=== PATIENT | female | born 1945 | race Caucasian/White ===

== ENCOUNTER 2016-11-09 17:47 | Emergency (ER) | payer OTHER ==
[2016-11-09 18:03] VITALS: O2SAT 94
--- NOTE | 2016-11-09 18:40 | EDPHY ---
H & P Stated Complaint: Constipated/bloating/cramping ~1 mo;no urge to defecate Time Seen by Provider: 11/09/16 18:22 HPI/ROS: CHIEF COMPLAINT: Constipation. HISTORY OF PRESENT ILLNESS: The patient is a 71 year old female with history of CLL presenting with intermittent constipation for 6 weeks. The patient is eating and drinking normally, but has some decreased appetite due to nausea. She has intermittently had fever that has reached 100.2. The patient is about to start treatment at the [facility] next Saturday. She tried Citrucel and Colace. After Colace she was able to have a bowel movement, but states it was not solid. She denies vomiting or urinary complaints. She feels like her breathing rate has increased secondary to abdominal distention. She denies chest pain, palpitations, or lightheadedness. REVIEW OF SYSTEMS: Aside from elements discussed in the HPI, a comprehensive 10-point review of systems was reviewed and is negative. PAST MEDICAL HISTORY: CLL, non-Hodgkins, Celiac disease, Kidney stones, Shingles SOCIAL HISTORY: Lives in [place]. VITAL SIGNS: Reviewed by me GENERAL: Well-developed, well-nourished, resting comfortably in no respiratory distress. HEENT: Atraumatic. Eyes: No icterus, no injection. Mouth: moist mucous membranes. No erythema or lesions. Neck: supple with no adenopathy. LUNGS: Clear to auscultation bilaterally, no wheezes, rhonchi or rales. CARDIAC: Regular rate and rhythm, no rubs, murmurs or gallops. ABDOMEN: Diffusely swollen, tympanitic abdomen. Mild diffuse tenderness, worse in the left mid quadrant. No rebound or guarding. BACK: No CVA tenderness. EXTREMITIES: No trauma. No edema. Range of motion is normal throughout. NEURO: Alert and oriented, grossly nonfocal. SKIN: Warm and dry, no rash. PSYCHIATRIC: Normal mentation, no agitation. Portions of this note were transcribed by a medical supply technician. I personally performed a history, physical exam, medical decision making, and confirmed accuracy of information the transcribed note. - Personal History Current Tetanus Diphtheria and Acellular Pertussis (TDAP): Yes Tetanus Vaccine Date: 2013 - Medical/Surgical History Hx Asthma: No Hx Chronic Respiratory Disease: No Hx Diabetes: No Hx Cardiac Disease: No Hx Renal Disease: No Hx Cirrhosis: No Hx Alcoholism: No Hx HIV/AIDS: No Hx Splenectomy or Spleen Trauma: No Other PMH: CLL, lymphoma 2010 diagnosed, on oral chemo now, celiac disease, MRSA 2010 foot, shingles, - Social History Smoking Status: Never smoked Constitutional: Initial Vital Signs Temperature (C) 37.8 C 11/09/16 17:50 Heart Rate 101 H 11/09/16 17:50 Respiratory Rate 18 11/09/16 17:50 Blood Pressure 113/75 11/09/16 17:50 O2 Sat (%) 94 11/09/16 17:50 O2 Delivery Mode Room Air Allergies/Adverse Reactions: gluten [Gluten] Allergy (Mild, Verified 11/09/16 18:03) FLU LIKE SYMPTOMS IN STOMACH SENSITIVE TO ANTIBOTICS Allergy (Intermediate, Uncoded 11/09/16 18:03) EXTREME ABDOMEN BLOATING COOKED ONIONS Allergy (Mild, Uncoded 11/09/16 18:03) FLU LIKE SYMPTOMS IN STOMACH Home Medications: Medication Instructions Recorded LORazepam [Ativan (*)] 0.5 - 1 mg PO HS PRN 02/16/13 Acyclovir [Zovirax 400 mg (*)] 400 mg PO BID 04/16/16 Medical Decision Making - Diagnostics Imaging: X-ray: Abdomen was obtained. I viewed the images myself on the PACS system. My interpretation of the images is: Constipation. The radiologist interpretation is: Constipation, kidney stones. I discussed the x-ray findings with the patient. ED Course/Re-evaluation: I offered CT imaging, patient declined and would only like x-ray at this time. X-ray shows constipation. 8:45 p.m.: I did a rectal exam, there is no stool in the vault. Labs largely unremarkable. WBC increased slightly and atypical lymphocytes present; patient aware that her counts are rising and has plans to go to [facility] in several days for treatment. No evidence of SBO on xray. No vomiting, still passing some gas. Offered CT scanning again to further define abdominal pathology and evaluate for increase lymph node size, obstruction, etc.. Patient again declines and wasnts to try supportive therapy at home. Differential Diagnosis: Diff dx considered constipation, bowel obstruction, ileus, electrolyte abnormality, mechanical obstruction from mass or tumor, gas, bloating. - Data Points Laboratory Results: Laboratory Results 11/09/16 19:00 11/09/16 19:00 Departure - Departure Disposition: Home, Routine, Self-Care Clinical Impression: Constipation, CLL (chronic lymphocytic leukemia) Condition: Good Instructions: Constipation (ED) Additional Instructions: #1. Take Magnesium Citrate as directed to help with constipation. #2. Followup with your doctor as scheduled to have CT done. Referrals: Brandon Best MD [Primary Care Provider] - As per Instructions Report Scribed for: Hui Carrillo Report Scribed by: Pamela Segundo Date of Report: 11/09/16 Time of Report: 18:40
[2016-11-09 19:10] LABS: ADD MORPH? NO; ADD SCAN? YES; FRAGMENT RBC FLAG 0 (0-99); HEMATOCRIT 33.9 % (38.0-47.0); HEMOGLOBIN 11.1 g/dL (12.6-16.3); LEFT SHIFT FLG 10 (0-99); LIPEMIA HEMOLYSIS FLAG 80 (0-99); MEAN CELL HEMOGLOBIN 28.8 pg (27.9-34.1); MEAN CELL HEMOGLOBIN CONCENTR. 32.7 g/dL (32.4-36.7); MEAN CELL VOLUME 87.8 fL (81.5-99.8); MEAN PLATELET VOLUME 10.1 fL (8.7-11.7); PLATELET CLUMPS FLAG 10 (0-99); PLATELET COUNT 213 10^3/uL (150-400); RED BLOOD CELL COUNT 3.86 10^6/uL (4.18-5.33)
[2016-11-09 19:11] LABS: COLOR YELLOW; LEUKOCYTE ESTERASE,URINE TRACE (NEGATIVE); NITRITE,URINE NEGATIVE (NEGATIVE)
[2016-11-09 19:14] LABS: MUCUS TRACE /lpf (NONE-1+); RBC,URINE 15-25 /hpf (0-3)
[2016-11-09 19:19] LABS: ATYPICAL LYMPHOCYTE FLAG 110 (0-99)
[2016-11-09 19:33] LABS: ALANINE AMINOTRANSFERASE 26 IU/L (9-52); ALBUMIN 3.9 g/dL (3.5-5.0); ALKALINE PHOSPHATASE 114 IU/L (38-126); ANION GAP 11 mEq/L (8-16); ASPARTATE AMINOTRANSFERASE 31 IU/L (14-46); BILIRUBIN,TOTAL 0.7 mg/dL (0.1-1.4); BILIRUBIN-CONJUGATED 0.4 mg/dL (0.0-0.5); BILIRUBIN-UNCONJUGATED 0.3 mg/dL (0.0-1.1); CALCIUM 9.3 mg/dL (8.5-10.4); CARBON DIOXIDE 21 mEq/l (22-31); CHLORIDE 105 mEq/L (97-110); CREATININE 0.8 mg/dL (0.6-1.0); GLOMERULAR FILTRATION RATE > 60; GLUCOSE 104 mg/dL (70-100); POTASSIUM 3.9 mEq/L (3.5-5.2); SODIUM 137 mEq/L (134-144); TOTAL PROTEIN 6.3 g/dL (6.3-8.2)
[2016-11-09 19:47] LABS: ADD DIFF? YES; SCAN POSITIVE
[2016-11-09 19:53] LABS: PLATELET ESTIMATE ADEQUATE (ADEQ); POLYCHROMASIA 1+
[2016-11-09 21:11] VITALS: BP 128/78; PULSE 70; RESP 14; TEMP 98.4
== END 2016-11-09 21:11 | disposition home or self-care (01) ==
DX: K59.00 Constipation, unspecified (principal); C91.10 Chronic lymphocytic leukemia of B-cell type not having achieved remission

== ENCOUNTER 2016-11-18 18:13 | Emergency (ER) | payer OTHER ==
[2016-11-18 18:22] VITALS: RESP 16
--- NOTE | 2016-11-18 18:26 | EDPHY ---
HPI/HX/ROS/PE/MDM Narrative: CHIEF COMPLAINT: Ativan Overdose. HISTORY OF PRESENT ILLNESS: The patient is a 71-year-old female with a history of CLL who presents after taking approximately 20mg Ativan around 1000 this morning. She reports that she took these in a suicide attempt. She recently traveled to [facility] to initiate treatment for her CLL, which is set to start in 2 weeks. Her daughter refused to come with her, which caused her to wake up depressed this morning. She then put "more or less" 20 1mg Ativan tablets into her mouth. She has been sleeping on and off all day. She denies taking other medications or any drugs today. No HI. She does have a history of depression but has never attempted suicide. No fever, chills, chest pain, shortness of breath, palpitations, vomiting, diarrhea, urinary complaints, headache, lightheadedness. REVIEW OF SYSTEMS: Aside from elements discussed in the HPI, a comprehensive 10-point review of systems was reviewed and is negative. PAST MEDICAL HISTORY: CLL, Celiac disease, shingles, depression. SOCIAL HISTORY: Mother. VITAL SIGNS: Reviewed by me GENERAL: Sleepy but arousable. Well-developed, well-nourished, resting comfortably in no respiratory distress. HEENT: Atraumatic. Eyes: No icterus, no injection. Mouth: moist mucous membranes. No erythema or lesions. Neck: supple with no adenopathy. LUNGS: Clear to auscultation bilaterally, no wheezes, rhonchi or rales. CARDIAC: Regular rate and rhythm, no rubs, murmurs or gallops. ABDOMEN: Soft, nontender, nondistended, bowel sounds normal. Palpable lymph nodes in bilateral groin. Palpable spleen. Palpable mass in right lower abdomen. BACK: No CVA tenderness. EXTREMITIES: No trauma. No edema. Range of motion is normal throughout. NEURO: Alert and oriented, grossly nonfocal. SKIN: Warm and dry, no rash. PSYCHIATRIC: Normal mentation, no agitation. Portions of this note were transcribed by a medical coding specialist. I personally performed a history, physical exam, medical decision making, and confirmed accuracy of information the transcribed note. (Hui Carrillo) ED Course: Patient placed on detainer by myself. I spoke with the [facility], . Patient is no longer in danger of respiratory depression. Labs and urine obtained. Patient was clinically cleared. Psych was asked to evaluation at 10:00 p.m. Patient's care assumed at 10:[address] Cordelia Mena. Patient is aware that she will need to remain in the emergency department so she is evaluated by mental health. She tells me she has a therapist named Skye who she has been trying to reach and may be able to see her tomorrow in the afternoon. (Hui Carrillo) 6:45 a.m.- The patient has remained stable throughout my shift. She is still awaiting mental health evaluation which occurred this morning. The case will be signed out at change of shift to the oncoming provider Dr. Romo. (Cordelia Mena) The patient was turned over to me by Dr. Cordelia Mena at shift change. The patient was seen in consultation by the psychiatric evaluation services. The patient's case was discussed with Dr. Bob Blanco. The patient now contracts for safety and denies suicidal ideation. The case was discussed with her regular therapist who knows her well. The patient would like to be discharged from the emergency department. Her therapist is amenable to this plan and disposition. Dr. Bob Blanco has vacated the psychiatric hold. The patient will be discharged from the emergency department with customary return precautions and a follow-up plan to see her therapist later today. (Kofi Romo) MDM: Differential diagnosis of the patient's presenting complaint was considered including but not limited to functional and major depression, situational depression, hypothyroidism, medication side effect, drugs and alcohol abuse. ( Hui Carrillo) I assumed the care of the patient at 700AM pending psychiatric placement. (Kofi Romo) - Data Points Laboratory Results: Laboratory Results 11/18/16 20:02 11/18/16 20:02 11/18/16 20:02 Smear Review By Guanako WALTER MD General Time Seen by Provider: 11/18/16 18:25 Initial Vital Signs: Initial Vital Signs Temperature (C) 36.7 C 11/18/16 18:18 Heart Rate 98 11/18/16 18:18 Respiratory Rate 16 11/18/16 18:18 Blood Pressure 104/64 11/18/16 18:18 O2 Sat (%) 93 11/18/16 18:18 O2 Delivery Mode Room Air Allergies/Adverse Reactions: gluten [Gluten] Allergy (Mild, Verified 11/18/16 18:17) FLU LIKE SYMPTOMS IN STOMACH SENSITIVE TO ANTIBOTICS Allergy (Intermediate, Uncoded 11/09/16 18:03) EXTREME ABDOMEN BLOATING COOKED ONIONS Allergy (Mild, Uncoded 11/09/16 18:03) FLU LIKE SYMPTOMS IN STOMACH Home Medications: Medication Instructions Recorded LORazepam [Ativan (*)] 0.5 - 1 mg PO HS PRN 02/16/13 Acyclovir [Zovirax 400 mg (*)] 400 mg PO BID 04/16/16 Allopurinol 11/18/16 Departure - Departure Disposition: Home, Routine, Self-Care Clinical Impression: Depression Benzodiazepine overdose Qualifiers: Encounter type: initial encounter Injury intent: intentional self-harm Qualified Code(s): T42.4X2A - Poisoning by benzodiazepines, intentional self- harm, initial encounter Condition: Good Instructions: Depression (ED) Additional Instructions: 1. Please follow-up with the mental health resources provided in the ED today. 2. [facility] does operate a 11/03 psychiatric crisis unit located at [address] [place] [address]. The telephone number for the 24 hour crisis center is [phone]. 3. Please return to the ED if you are feeling suicidal, having thoughts of harming yourself/others or should you feel unsafe or have worsening symptoms. 4. Please follow-up with your therapist as discussed today. Referrals: Brandon Best MD [Primary Care Provider] - As per Instructions Report Scribed for: Hui Carrillo Report Scribed by: Stan Gallegos Date of Report: 11/18/16 Time of Report: 19:11
[2016-11-18 20:17] LABS: % IMMATURE GRANULYOCYTES 1.1 % (0.0-1.1); ABSOLUTE IMMATURE GRANULOCYTES 0.22 10^3/uL (0.00-0.10); ADD DIFF? NO; ADD MORPH? NO; ADD SCAN? YES; FRAGMENT RBC FLAG 0 (0-99); HEMATOCRIT 35.3 % (38.0-47.0); HEMOGLOBIN 11.4 g/dL (12.6-16.3); LEFT SHIFT FLG 10 (0-99); LIPEMIA HEMOLYSIS FLAG 80 (0-99); MEAN CELL HEMOGLOBIN 29.4 pg (27.9-34.1); MEAN CELL HEMOGLOBIN CONCENTR. 32.3 g/dL (32.4-36.7); MEAN PLATELET VOLUME 9.4 fL (8.7-11.7); PLATELET CLUMPS FLAG 0 (0-99); PLATELET COUNT 250 10^3/uL (150-400); RED BLOOD CELL COUNT 3.88 10^6/uL (4.18-5.33); RED CELL DISTRIBUTION WIDTH 15.4 % (11.5-15.2)
[2016-11-18 20:18] LABS: ATYPICAL LYMPHOCYTE FLAG 110 (0-99)
[2016-11-18 20:29] LABS: ANION GAP 11 mEq/L (8-16); CALCIUM 9.8 mg/dL (8.5-10.4); CARBON DIOXIDE 22 mEq/l (22-31); CHLORIDE 110 mEq/L (97-110); GLOMERULAR FILTRATION RATE 55; GLUCOSE 82 mg/dL (70-100); POTASSIUM 4.5 mEq/L (3.5-5.2); SALICYLATE < 1.0 mg/dL (2.0-20.0); SODIUM 143 mEq/L (134-144)
[2016-11-18 20:35] LABS: ETHANOL SERUM < 10 mg/dL (0-10)
[2016-11-18 20:54] LABS: SCAN POSITIVE
[2016-11-18 21:00] LABS: PLATELET ESTIMATE ADEQUATE (ADEQ); POLYCHROMASIA 1+
[2016-11-19 07:27] VITALS: TEMP 98.1
[2016-11-19 12:32] VITALS: BP 110/71; PULSE 100; O2SAT 92
== END 2016-11-19 12:31 | disposition home or self-care (01) ==
DX: T42.4X2A Poisoning by benzodiazepines, intentional self-harm, initial encounter (principal); F32.9 Major depressive disorder, single episode, unspecified
CPT/HCPCS: 80305; G0480

== ENCOUNTER 2017-02-23 18:39 | Emergency (ER) | payer OTHER ==
--- NOTE | 2017-02-23 19:10 | EDPHY ---
H & P Stated Complaint: ?cellulitis l lower leg Time Seen by Provider: 02/23/17 18:52 HPI/ROS: CHIEF COMPLAINT: Cellulitis HISTORY OF PRESENT ILLNESS: The patient is a 71-year-old female with a history of CLL the who comes to the emergency department complaining of erythema in her left lower leg. She states that it is similar to previous episodes of cellulitis. She is followed by infectious disease. She has been successful in the past with oral therapy. She spoke with Dr. Vidhya Vernon today who recommended she come to the ER. She has not had a fever. She also states that there was check her for DVT but she has never had one. REVIEW OF SYSTEMS: Constitutional: denies: chills, fever, recent illness, recent injury EENTM: denies: blurred vision, double vision, nose congestion Respiratory: denies: cough, shortness of breath Cardiac: denies: chest pain, irregular heart rate, lightheadedness, palpitations Gastrointestinal/Abdominal: denies: abdominal pain, diarrhea, nausea, vomiting, blood streaked stools Genitourinary: denies: dysuria, frequency, hematuria, pain Musculoskeletal: denies: joint pain, muscle pain Skin: See HPI Neurological: denies: headache, numbness, paresthesia, tingling, dizziness, weakness Hematologic/Lymphatic: denies: blood clots, easy bleeding, easy bruising Immunologic/allergic: denies: HIV/AIDS, transplant EXAM: GENERAL: Well-appearing, well-nourished and in no acute distress. HEAD: Atraumatic, normocephalic. EYES: Pupils equal round and reactive to light, extraocular movements intact, sclera anicteric, conjunctiva are normal. ENT: TMs normal, nares patent, oropharynx clear without exudates. Moist mucous membranes. NECK: Normal range of motion, supple without lymphadenopathy or JVD. LUNGS: Breath sounds clear to auscultation bilaterally and equal. No wheezes rales or rhonchi. HEART: Regular rate and rhythm without murmurs, rubs or gallops. ABDOMEN: Soft, nontender, normoactive bowel sounds. No guarding, no rebound. No masses appreciated. BACK: No CVA tenderness, no spinal tenderness, step-offs or deformities EXTREMITIES: Normal range of motion, no pitting or edema. No clubbing or cyanosis. NEUROLOGICAL: Cranial nerves II through XII grossly intact. Normal speech, normal gait. 5/5 strength, normal movement in all extremities, normal sensation PSYCH: Normal mood, normal affect. SKIN: Left lower extremity with posterior erythema and warmth up to the level of the calf down to the Achilles tendon. Is no abscess, no purulence. Source: Patient Exam Limitations: No limitations - Personal History Current Tetanus/Diphtheria Vaccine: Yes Tetanus Vaccine Date: 2013 - Medical/Surgical History Hx Asthma: No Hx Chronic Respiratory Disease: No Hx Diabetes: No Hx Cardiac Disease: No Hx Renal Disease: No Hx Cirrhosis: No Hx Alcoholism: No Hx HIV/AIDS: No Hx Splenectomy or Spleen Trauma: No Other PMH: CLL, lymphoma 2009 diagnosed, on oral chemo now, celiac disease, MRSA 2010 foot, shingles, - Family History Significant Family History: No pertinent family hx - Social History Smoking Status: Never smoked Alcohol Use: Sober Drug Use: None Constitutional: Initial Vital Signs Temperature (C) 36.9 C 02/23/17 18:43 Heart Rate 94 02/23/17 18:43 Respiratory Rate 16 02/23/17 18:43 Blood Pressure 115/79 02/23/17 18:43 O2 Sat (%) 96 02/23/17 18:43 O2 Delivery Mode Room Air Allergies/Adverse Reactions: gluten [Gluten] Allergy (Mild, Verified 02/23/17 18:42) FLU LIKE SYMPTOMS IN STOMACH SENSITIVE TO ANTIBOTICS Allergy (Intermediate, Uncoded 11/09/16 18:03) EXTREME ABDOMEN BLOATING COOKED ONIONS Allergy (Mild, Uncoded 11/09/16 18:03) FLU LIKE SYMPTOMS IN STOMACH Home Medications: Medication Instructions Recorded LORazepam [Ativan (*)] 0.5 - 1 mg PO HS PRN 02/16/13 Acyclovir [Zovirax 400 mg (*)] 400 mg PO BID 04/16/16 Allopurinol 11/18/16 Acalabrutinib 02/23/17 Cephalexin [Keflex] 500 mg PO Q6H #28 cap 02/23/17 Doxycycline Hyclate [Vibramycin] 100 mg PO BID #30 cap 02/23/17 Medical Decision Making - Diagnostics Imaging Results: Imaging Impressions Extremity Venous Study 02/23/17 19:11 Impression: No deep venous thrombosis left leg. Results called and discussed with Dr. Tonio Nevarez at 02/23/2017 20:27. Imaging: Discussed imaging studies w/ aircraft servicer Radiologist ED Course/Re-evaluation: 8:10 p.m. I discussed the case with Dr. Vidhya Vernon from Infectious Disease. We reviewed the previous admission and culture results. She recommends Keflex and doxy at home with a initial dose of Rocephin here in the emergency department. Differential Diagnosis: Partial list of the Differential diagnosis considered include but were not limited to; cellulitis, abscess and although unlikely based on the history and physical exam, I also considered sepsis. I discussed these differential diagnoses and the plan with the patient as well as the usual and expected course. The patient understands that the diagnosis is provisional and that in medicine we are not always correct and that further workup is often warranted. Usual and customary warnings were given. All of the patient's questions were answered. The patient was instructed to return to the emergency department should the symptoms at all worsen or return, otherwise to followup with the physician as we discussed. - Data Points Laboratory Results: Laboratory Results 02/23/17 19:18 02/23/17 19:18 02/23/17 02/23/17 19:18 19:18 WBC 11.27 10^3/uL H 10^3/uL (3.80-9.50) RBC 3.33 10^6/uL L 10^6/uL (4.18-5.33) Hgb 9.6 g/dL L g/dL (12.6-16.3) Hct 30.6 % L % (38.0-47.0) MCV 91.9 fL fL (81.5-99.8) MCH 28.8 pg pg (27.9-34.1) MCHC 31.4 g/dL L g/dL (32.4-36.7) RDW 12.9 % % (11.5-15.2) Plt Count 194 10^3/uL 10^3/uL (150-400) MPV 10.5 fL fL (8.7-11.7) Neut % (Auto) 42.3 % % (39.3-74.2) Lymph % (Auto) 45.2 % H % (15.0-45.0) Ida % (Auto) 4.4 % L % (4.5-13.0) Eos % (Auto) 7.5 % % (0.6-7.6) Baso % (Auto) 0.4 % % (0.3-1.7) Nucleat RBC Rel Count 0.0 % % (0.0-0.2) Absolute Neuts (auto) 4.77 10^3/uL 10^3/uL (1.70-6.50) Absolute Lymphs (auto) 5.09 10^3/uL H 10^3/uL (1.00-3.00) Absolute Monos (auto) 0.50 10^3/uL 10^3/uL (0.30-0.80) Absolute Eos (auto) 0.85 10^3/uL H 10^3/uL (0.03-0.40) Absolute Basos (auto) 0.04 10^3/uL 10^3/uL (0.02-0.10) Absolute Nucleated RBC 0.00 10^3/uL 10^3/uL (0-0.01) Immature Gran % 0.2 % % (0.0-1.1) Immature Gran # 0.02 10^3/uL 10^3/uL (0.00-0.10) Sodium 142 mEq/L mEq/L (134-144) Potassium 4.3 mEq/L mEq/L (3.5-5.2) Chloride 111 mEq/L H mEq/L (97-110) Carbon Dioxide 20 mEq/l L mEq/l (22-31) Anion Gap 11 mEq/L mEq/L (8-16) BUN 28 mg/dL H mg/dL (7-23) Creatinine 0.8 mg/dL mg/dL (0.6-1.0) Estimated GFR > 60 Glucose 132 mg/dL H mg/dL (70-100) Calcium 9.5 mg/dL mg/dL (8.5-10.4) Medications Given: Discontinued Medications Ceftriaxone Sodium/Dextrose (Rocephin 1 Gm (Premix)) 50 mls @ 100 mls/hr IV EDNOW ONE PRN Reason: Protocol Stop: 02/23/17 20:37 Last Admin: 02/23/17 20:00 Dose: 50 mls Departure - Departure Disposition: Home, Routine, Self-Care Clinical Impression: Cellulitis Qualifiers: Site of cellulitis: extremity Site of cellulitis of extremity: lower extremity Laterality: left Qualified Code(s): L03.116 - Cellulitis of left lower limb Condition: Fair Instructions: Cellulitis (ED) Additional Instructions: Dr. Vernon would like to follow up with you on Saturday. If you have trouble before then call her Referrals: Brandon Best MD [Primary Care Provider] - As per Instructions Vidhya Vernon MD [Medical Doctor] - 1-2 days without fail Prescriptions: Cephalexin [Keflex] 500 mg PO Q6H #28 cap Doxycycline Hyclate [Vibramycin] 100 mg PO BID #30 cap
[2017-02-23 19:28] LABS: % IMMATURE GRANULYOCYTES 0.2 % (0.0-1.1); ABSOLUTE IMMATURE GRANULOCYTES 0.02 10^3/uL (0.00-0.10); ADD DIFF? NO; ADD MORPH? NO; ADD SCAN? NO; ATYPICAL LYMPHOCYTE FLAG 0 (0-99); FRAGMENT RBC FLAG 0 (0-99); HEMATOCRIT 30.6 % (38.0-47.0); HEMOGLOBIN 9.6 g/dL (12.6-16.3); LEFT SHIFT FLG 0 (0-99); LIPEMIA HEMOLYSIS FLAG 80 (0-99); MEAN CELL HEMOGLOBIN 28.8 pg (27.9-34.1); MEAN CELL HEMOGLOBIN CONCENTR. 31.4 g/dL (32.4-36.7); MEAN CELL VOLUME 91.9 fL (81.5-99.8); MEAN PLATELET VOLUME 10.5 fL (8.7-11.7); PLATELET CLUMPS FLAG 0 (0-99); PLATELET COUNT 194 10^3/uL (150-400); RED BLOOD CELL COUNT 3.33 10^6/uL (4.18-5.33); RED CELL DISTRIBUTION WIDTH 12.9 % (11.5-15.2)
[2017-02-23 19:36] LABS: ANION GAP 11 mEq/L (8-16); CALCIUM 9.5 mg/dL (8.5-10.4); CARBON DIOXIDE 20 mEq/l (22-31); CHLORIDE 111 mEq/L (97-110); CREATININE 0.8 mg/dL (0.6-1.0); GLOMERULAR FILTRATION RATE > 60; GLUCOSE 132 mg/dL (70-100); POTASSIUM 4.3 mEq/L (3.5-5.2); SODIUM 142 mEq/L (134-144)
[2017-02-23] MEDS ORDERED: CEPHALEXIN 250MG/5ML PREPACK BTL TAKEHOME ONE (21:01)
[2017-02-23] MEDS ORDERED: DOXYCYCLINE 100 MG PREPACK#2 BTL TAKEHOME ONE (21:01)
[2017-02-23] MEDS ORDERED: CEPHALEXIN 500MG PREPACK#4 BTL TAKEHOME ONE (21:01)
[2017-02-23 21:30] VITALS: BP 130/74; PULSE 70; RESP 14; TEMP 97.9; O2SAT 94
== END 2017-02-23 21:29 | disposition home or self-care (01) ==
DX: L03.116 Cellulitis of left lower limb (principal); Z85.72 Personal history of non-Hodgkin lymphomas
CPT/HCPCS: 93971; 96365; 99285; J0696

== ENCOUNTER → 2017-08-01 | Outpatient (CLI) | payer OTHER ==
[~2017-08-01] MED LIST: GADOBUTROL 10 ML VIAL IVP ONE
== END ==
LOC: FIMAGING 17:23
PROVIDERS: ATTEND Obstetrics & Gynecology
DX: K86.2 Cyst of pancreas (principal); K86.89 Other specified diseases of pancreas; N20.0 Calculus of kidney; D47.9 Neoplasm of uncertain behavior of lymphoid, hematopoietic and related tissue, unspecified
CPT/HCPCS: 74183; A9585

== ENCOUNTER 2017-12-08 11:20 | Emergency (ER) | payer OTHER ==
[2017-12-08] MEDS ORDERED: methylPREDNISolone SOD SUCC 125 MG/2 ML VIAL IVP ONE (11:35)
[2017-12-08] MEDS ORDERED: NS 500 ML IV ONE (11:35)
[2017-12-08] MEDS ORDERED: RANITIDINE 50 MG/2 ML VIAL IVP ONE (11:35)
[2017-12-08] MEDS ORDERED: LORazepam 2 MG/ML INJ IVP ONE (11:36)
--- NOTE | 2017-12-08 11:39 | EDPHY ---
H & P Stated Complaint: States trouble swallowing; ? rxn to whey protein Time Seen by Provider: 12/08/17 11:37 HPI/ROS: HPI: This is a 72-year-old female who presents with Chief Complaint: States trouble swallowing; ? rxn to whey protein Location: throat Quality: Trouble swallowing Duration: 30 min prior to arrival Signs and Symptoms: no wheezing, no rash, no facial swelling, no lip swelling, no tongue swelling, no fever, no nausea, no vomiting, no diarrhea, no urinary symptoms, no chest pain, no shortness of breath, no wheezing, no cough, no sore throat, no neck stiffness, no joint pain, + swollen glands, no ear pain, + dysphagia, no drooling Timing:acute Severity: 02/25 Context: Patient presents with complaints of trouble swallowing that started approximately 30 min prior to arrival. She reports around 9:00 a.m. She drank a smoothie that contained whey protein. She was at the [employer] salon with her friend who is currently at bedside when she started to experience approximately 2 hr after ingestion of the smoothie scratchiness of her throat and difficulty swallowing. She reports that she is able to swallow her saliva but it feels thick. She also reports swollen bilateral cervical anterior glands. She has no prior history of anaphylaxis/allergic reaction. Her palms both feel itchy. No rash. Modifying Factors: No tedq-lis-cepwqir medications tried Comment: ROS: see HPI Constitutional: no fever, no chills, no weight loss Eyes: No blurred vision Respiratory: No shortness of breath, no cough Cardiovascular: No chest pain, no palpitations Gastrointestinal: No nausea, no vomiting, no diarrhea, no hematemesis, no blood in stool Genitourinary: No dysuria, no blood in urine Extremities: No myalgias, no edema Neurologic: No weakness, no numbness Skin: No rashes, no petechiae Hematologic: No bruising, no bleeding MEDICAL/SURGICAL/SOCIAL HISTORY: Medical history: CLL, lymphoma 2010 diagnosed, on oral chemo now, celiac disease, MRSA 2011 foot, shingles Surgical history: Denies Social history: Retired. Family history noncontributory. CONSTITUTIONAL: Moderately anxious, chronically ill-appearing elderly white female, friend at bedside, awake and alert, no obvious distress HEENT: Atraumatic and normocephalic, PERRL, EOMI. Nares patent; no rhinorrhea; no nasal mucosal edema. Tympanic membranes clear. Oropharynx clear, no postpharyngeal edema; uvula midline; no exudate and moist pink mucosa. Airway patent. No lymphadenopathy. No meningismus. Cardiovascular: Normal S1/S2, tachycardia, regular rhythm, without murmur rub or gallop. PULMONARY/CHEST: Symmetrical and nontender. No upper airway sound transmission. Clear to auscultation bilaterally. Good air movement. No accessory muscle usage. ABDOMEN: Soft, nondistended, nontender, no rebound, no guarding, no peritoneal signs, no masses or organomegaly. No CVAT. EXTREMITIES: 2/2 pulses, strength 5/5, no deformities, no clubbing, no cyanosis or edema. NEUROLOGICAL: no focal neuro deficits. GCS 15. Speech is clear. SKIN: Warm and dry, no erythema. no rash. Good capillary refill. Source: Patient, Family Exam Limitations: No limitations - Personal History Current Tetanus Diphtheria and Acellular Pertussis (TDAP): Yes Tetanus Vaccine Date: 2013 - Medical/Surgical History Hx Asthma: No Hx Chronic Respiratory Disease: No Hx Diabetes: No Hx Cardiac Disease: No Hx Renal Disease: No Hx Cirrhosis: No Hx Alcoholism: No Hx HIV/AIDS: No Hx Splenectomy or Spleen Trauma: No Other PMH: CLL, lymphoma 2009 diagnosed, on oral chemo now, celiac disease, MRSA 2010 foot, shingles, - Social History Smoking Status: Never smoked Constitutional: Initial Vital Signs Temperature (C) 36.5 C 12/08/17 11:23 Heart Rate 106 H 12/08/17 11:23 Respiratory Rate 18 12/08/17 11:23 Blood Pressure 86/51 L 12/08/17 11:23 O2 Sat (%) 92 12/08/17 11:23 O2 Delivery Mode Room Air O2 (L/minute) 2 Allergies/Adverse Reactions: gluten [Gluten] Allergy (Mild, Verified 12/08/17 11:22) FLU LIKE SYMPTOMS IN STOMACH SENSITIVE TO ANTIBOTICS Allergy (Intermediate, Uncoded 11/09/16 18:03) EXTREME ABDOMEN BLOATING COOKED ONIONS Allergy (Mild, Uncoded 11/09/16 18:03) FLU LIKE SYMPTOMS IN STOMACH Home Medications: Medication Instructions Recorded LORazepam [Ativan (*)] 0.5 - 1 mg PO HS PRN 07/01/13 Acyclovir [Zovirax 400 mg (*)] 400 mg PO BID 04/16/16 Allopurinol 11/18/16 Acalabrutinib 02/23/17 Cephalexin [Keflex] 500 mg PO Q6H #28 cap 02/23/17 Doxycycline Hyclate [Vibramycin] 100 mg PO BID #30 cap 02/23/17 EPINEPHrine [Epipen 0.3 MG] 0.3 mg IM ONCE #2 syr 12/08/17 Medical Decision Making - Diagnostics Imaging Results: Imaging Impressions Soft Tissue Neck X-Ray 12/08/17 14:15 Impression: Mild epiglottic edema is possible, with no airway obstruction noted. ED Course/Re-evaluation: Vital signs reviewed and show mild tachycardia with a low blood pressure. No hypoxia noted. No signs of airway compromise/respiratory distress/angioedema/anaphylaxis 1145: Placed on monitor and given IV 500 cc normal saline, IV Ativan 1 mg, IV Zantac, IV Solu-Medrol, IV Benadryl monitored for 4 hours with complete resolution of symptoms After 4 hr in the emergency room, patient now informs me that she had an EGD approximately 5 weeks ago by Gastroenterology that was unremarkable for her chronic dysphagia. at bedside is now requesting a neck xray. Patient is swallowing fluids without difficulty. She reports that she was supposed to picker operator her prescription from the gastroenterology office before they went out of town but she never did. She does not remember the name of her tandem mill sticker. 1454: Soft tissue x-ray neck Mild epiglottic edema is possible, with no airway obstruction noted. 1515: Reassessed patient. Eating a cupcake without any difficulty and drinking water. This patient was seen under the supervision of my secondary supervising physician. I evaluated care for this patient independently. Discussed this patient with Dr. Mackay who did not see the patient. Differential Diagnosis: Differential diagnosis includes but is not limited to anaphylaxis, angioedema, allergic reaction, mast cell disease. - Data Points Medications Given: Discontinued Medications Diphenhydramine HCl (Benadryl Injection) 25 mg IVP EDNOW ONE Stop: 12/08/17 11:36 Last Admin: 12/08/17 11:42 Dose: 25 mg Sodium Chloride (Ns) 500 mls @ 0 mls/hr IV ONCE ONE; Wide Open PRN Reason: Protocol Stop: 12/08/17 11:36 Last Admin: 12/08/17 11:41 Dose: 500 mls Lorazepam (Ativan Injection) 1 mg IVP EDNOW ONE Stop: 12/08/17 11:37 Last Admin: 12/08/17 11:42 Dose: 1 mg Methylprednisolone Sodium Succinate (Solu-Medrol) 125 mg IVP EDNOW ONE Stop: 12/08/17 11:36 Last Admin: 12/08/17 11:42 Dose: 125 mg Ranitidine HCl (Zantac) 50 mg IVP EDNOW ONE Stop: 12/08/17 11:36 Last Admin: 12/08/17 11:42 Dose: 50 mg Departure - Departure Disposition: Home, Routine, Self-Care Clinical Impression: Allergy to wheat Dysphagia Qualifiers: Dysphagia type: unspecified Qualified Code(s): R13.10 - Dysphagia, unspecified Condition: Good Instructions: Food Allergy (ED), Dysphagia (ED) Additional Instructions: Please avoid whey protein in the future. Acetone from nail scottish remover can also cause throat irritation and should be avoided. Take Benadryl 25-50 mg every 4 hours as needed for itching, allergic reaction. Use Epi Pen as needed for anaphylaxis. Allergic Reaction: Return to the Emergency Department for lip, tongue, throat, or face swelling, or any trouble breathing or swallowing. Eat a bland / soft diet until cleared by Gastroenterology. Referrals: Brandon Best MD [Primary Care Provider] - As per Instructions [facility] [Provider Group] - As per Instructions Prescriptions: EPINEPHrine [Epipen 0.3 MG] 0.3 mg IM ONCE #2 syr
[2017-12-08 15:10] VITALS: BP 102/65
== END 2017-12-08 15:10 | disposition home or self-care (01) ==
DX: R13.10 Dysphagia, unspecified (principal); E86.9 Volume depletion, unspecified; T78.1XXA Other adverse food reactions, not elsewhere classified, initial encounter
CPT/HCPCS: 70360; 96361; 96374; 96375; 99284; J1200; J2060; J2780; J2930

== ENCOUNTER 2017-12-09 15:35 | Inpatient (IN) | payer OTHER ==
[2017-12-09] MEDS ORDERED: ONDANSETRON 4 MG/2 ML VIAL IVP PRN (16:13)
[2017-12-09] MEDS ORDERED: ONDANSETRON DISINTEGRATING 4 MG TAB PO PRN (16:13)
[2017-12-09] MEDS: NS 1,000 ML IV SCH (17:11)
[2017-12-09] MEDS ORDERED: FUROSEMIDE 40 MG/4 ML VIAL IVP ONE ×2 (17:18→20:30)
--- NOTE | 2017-12-09 17:55 | GHP ---
[f rep st] HISTORY AND PHYSICAL DATE OF ADMISSION: 12/09/2017 CHIEF COMPLAINT: Hypercalcemia. HPI: The patient is a 72-year-old with a history of non-Hodgkin lymphoma. She has had worsening symptoms, and a recent CT scan showed increased tumor bulk. She was started on a new medication which has a risk of tumor lysis. She has been followed closely by Dr. Arteaga who noted elevated calcium levels, mildly elevated uric acid levels. She was treated with Zometa on the with a calcium at the height of 12.5. She has also been receiving IV fluids in the outpatient setting. Despite this, her calcium remains elevated at 11.9. She is continuing to have significant lower extremity edema, so she is being admitted for ongoing IV fluids and IV diuresis. Her main complaint now is just the edema. She was hospitalized at [facility] where she is followed by a CLL specialist. They gave her lots of fluids since she had a complication of C difficile colitis and noted the increased lower extremity swelling during that hospitalization. It has not significantly improved since then. She also complains of some mild brain fog and fatigue which has slightly improved since her Zometa a few days ago. She also has had decreased urination recently. No diarrhea currently. No chest pain, shortness of breath. No headache. No other significant symptoms except as noted above. REVIEW OF SYSTEMS: A 10-point review of systems done with the pertinent positives present in HPI. PAST MEDICAL HISTORY: 1. Stage IV non-Hodgkin lymphoma. 2. Eosinophilic esophagitis. 3. Osteoarthritis. 4. History of recent C difficile colitis. No current diarrhea. FAMILY HISTORY: Father from cancer. Mother of old age. SOCIAL HISTORY: She does not smoke and does not drink. CURRENT MEDICATIONS: Please see med reconciliation form. ALLERGIES: Include gluten, cooked onions, and a sensitivity to antibiotics which are unnamed. PHYSICAL EXAM: VITAL SIGNS: She is afebrile. Heart rate is 102, blood pressure 96/60, O2 saturation is 95% with activity, 96% at rest. Weight is 120 kg. GENERAL: She is a 72-year-old woman. She is in no distress. She is alert and oriented. HEENT: Pupils are equal. Extraocular movements intact. No significant periorbital edema. Mucous membranes moist. Oropharynx clear. NECK: Supple. No adenopathy. HEART: Regular with a systolic murmur. LUNGS: Clear bilaterally without rales. ABDOMEN: Soft. No obvious masses. Positive bowel sounds. EXTREMITIES: She has 4+ pitting edema bilateral lower extremities with some venous stasis changes. No cellulitis. MUSCULOSKELETAL: No joint deformities. SKIN: Some venous stasis changes on her lower extremities. Otherwise intact. PSYCHIATRIC: Her mood is normal. NEUROLOGIC: She is moving all 4 extremities. LABORATORY DATA: Done today include a CBC with white count 1.63 and 50% neutrophils, hemoglobin 9.7 with a platelet count of 96. Electrolytes are normal with BUN 31, creatinine 1.0, calcium 11.9. Uric acid 7.1. Albumin is low at 2.8. ASSESSMENT AND PLAN: A 72-year-old admitted from the clinic with hypercalcemia , symptoms of nausea and malaise. This is likely from tumor lysis syndrome from her most recent chemotherapy. Plan will be to admit her for observation. Will hydrate her, as well as give her intravenous Lasix, to try and improve her calcium. If she does not respond, could consider albumin, followed by Lasix for improved diuresis. Will also have her increase her protein intake to help her edema. Will continue to monitor her calcium levels, as well as her phosphorus and magnesium levels, while she is here. She already received a dose of Zometa so will not provide any further medications other than the fluids and Lasix. I did discuss the case briefly with Dr. Demarco Magaña who will see her in consultation tomorrow. Currently, she has minimal symptoms from her hypercalcemia and is feeling better since her dose of Zometa. 1. Non-Hodgkin lymphoma. Will defer to Oncology regarding ongoing treatment with her newer medication. 2. History of osteoarthritis. 3. Eosinophilic esophagitis. This was recently diagnosed through Dr. Willis's office. I will try to get records regarding treatment for this. 4. Deep venous thrombosis prophylaxis. Will start her on low-molecular weight heparin while she is here in the hospital for medium risk. /[id number]/MODL MTDD
[2017-12-09] MEDS ORDERED: ALBUMIN 25% 100 ML IV ONE (18:24)
[2017-12-09] MEDS ORDERED: LORazepam 1 MG TAB PO PRN (19:28)
[2017-12-09] MEDS: ACYCLOVIR 400 MG TAB PO SCH (20:51)
[2017-12-09] MEDS ORDERED: NON-FORMULARY NEW DRUG (Vancomycin 125 MG) PO SCH (21:00)
[2017-12-09] MEDS ORDERED: ACYCLOVIR 400 MG TAB PO SCH (21:00)
[2017-12-09] MEDS: ACETAMINOPHEN 325 MG TAB PO PRN (23:02)
[2017-12-10] MEDS: ACETAMINOPHEN 325 MG TAB PO PRN (04:11)
[2017-12-10] MEDS: NS 1,000 ML IV SCH (04:11)
[2017-12-10] MEDS: LORazepam 1 MG TAB PO PRN ×2 (04:25→21:00)
[2017-12-10 05:14] LABS: PLATELET COUNT 76 10^3/uL (150-400)
[2017-12-10] MEDS: ACYCLOVIR 400 MG TAB PO SCH ×2 (08:54→21:00)
[2017-12-10] MEDS: PANTOPRAZOLE SODIUM 40 MG TAB PO SCH (08:54)
[2017-12-10] MEDS: FUROSEMIDE 40 MG/4 ML VIAL IVP SCH ×2 (08:55→16:36)
[2017-12-10] MEDS: ALLOPURINOL 300 MG TAB PO SCH (08:55)
[2017-12-10] MEDS ORDERED: ALLOPURINOL 300 MG TAB PO SCH (09:00)
[2017-12-10] MEDS ORDERED: PANTOPRAZOLE SODIUM 40 MG TAB PO SCH (09:00)
[2017-12-10] MEDS ORDERED: ALBUMIN 25% 100 ML IV ONE (10:39)
[2017-12-10] MEDS ORDERED: POTASSIUM CL 20 MEQ TAB PO ONE (10:39)
[2017-12-10] MEDS: ENOXAPARIN 40 MG/0.4 ML SYR SC SCH ×2 (11:31→12:09)
[2017-12-10] MEDS: NS W/ 20 KCl/L 1,000 ML IV SCH (12:38)
--- NOTE | 2017-12-10 16:56 | GCON ---
[f rep st] CONSULTATION HEMATOLOGY/ONCOLOGY CONSULTATION DATE OF CONSULTATION: 12/10/2017 HISTORY OF PRESENT ILLNESS: The patient is a pleasant 72-year-old female with a history of chronic lymphocytic leukemia originally diagnosed in February of 2006. She has had multiple prior therapies. Recently, she has been receiving therapy under the direction of physicians at the [facility]. She was on ibrutinib and was then transitioned to an experimental Tim's tyrosine kinase inhibitor at the time of progression. 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 She was started on venetoclax and rituximab at [facility]. She had a rapid escalation of her venetoclax dosing and is currently taking 400 mg daily. She has tolerated the medication. She was hospitalized at [facility] with Clostridium difficile colitis in October which was successfully treated. She was recently seen in the outpatient setting by her oncologist in [place], Dr Arteaga. She continued on venetoclax therapy at that time. She was noted to have hypercalcemia of malignancy which has been associated with prolymphocytic leukemia. She was given a dose of zoledronic acid and IV fluids. Calcium improved but remained somewhat elevated. She felt fatigued. She was admitted to the hospital for IV fluid and Lasix to help more rapidly lower her calcium. Calcium performed this morning was down to 10.8. The patient denies abdominal pain, nausea, vomiting, or diarrhea. She denies fevers or chills. She is more energetic, though does report continued fatigue. Repeat calcium is being drawn this evening and is pending. PAST MEDICAL HISTORY: 1. CLL as outlined above with recent transformation to prolymphocytic leukemia. 2. History of celiac sprue. 3. Uterine fibroids. 4. Nephrolithiasis. 5. Scoliosis. PAST SURGICAL HISTORY: None. SOCIAL HISTORY: The patient is . She is a nonsmoker. She lives locally. REVIEW OF SYSTEMS: As outlined above. PHYSICAL EXAM: GENERAL: Patient is resting comfortably in bed. She is in no acute distress. HEENT: Pupils equal, sclerae nonicteric. HEART: Regular without murmur. ABDOMEN: Soft, nontender. Splenomegaly is present with no left upper quadrant tenderness. EXTREMITIES: Trace bilateral pedal edema. No calf tenderness or swelling. NEUROLOGIC: Patient alert, oriented, and appropriate. LABORATORY STUDIES: Sodium 140, potassium 3.2, chloride 105, bicarb 25, BUN 23 , creatinine 0.9, calcium 10.8, bilirubin 0.4, phosphorus 3.0, magnesium 1.6. White count 0.92, hemoglobin 7.2, hematocrit 23.1, platelet count is 76,000. ASSESSMENT: 1. 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 2. Hypercalcemia of malignancy. 3. Therapy-induced pancytopenia. 4. Recent history of Clostridium difficile colitis. The patient is a 72-year-old female with a history of chronic lymphocytic leukemia with recent transformation to prolymphocytic leukemia. She is on a combination of venetoclax and rituximab. She has hypercalcemia of malignancy which has been treated with Zometa as an outpatient. She was admitted for intravenous fluid administration and Lasix. Her calcium is improving. She feels somewhat better. It is been repeated and is pending. The patient will remain inpatient overnight, likely to be discharged in the morning. We will resume her venetoclax from her home supply. I have notified Dr. Arteaga of her admission. If her anemia worsens, I would favor packed red cell transfusion prior to discharge. This should be recheck with her morning labs. She will follow up with Dr. Arteaga once discharged. Her questions were answered. Total time for today's visit was approximately 45 minutes, of which greater than 50% was spent counseling and care coordination. /[id number]/MODL MTDD
[2017-12-10] MEDS ORDERED: FUROSEMIDE 40 MG/4 ML VIAL IVP ONE (17:12)
--- NOTE | 2017-12-10 17:16 | HOSPPROG ---
Hospitalist Progress Note Assessment/Plan: Assessment: 72-year-old female presents with acute hypercalcemia in the setting of recent acute tumor lysis syndrome, neutropenia Plan: 1. Hypercalcemia. Acute, new problem this provider, further workup indicated. Most likely secondary to recent tumor lysis syndrome, requiring ongoing IV fluids as well as increase in IV diuretics -repeat chemistry this afternoon demonstrated slight decrease in serum calcium level to approximately 11.4, corrected -will repeat calcium level in a.m. -continue IV normal saline with supplemental potassium, continue IV Lasix but increase dosage to 80 mg twice daily now -status post 1 dose of IV albumin this morning, depending on patient's urine output and calcium level in a.m., may re-dose albumin tomorrow a.m. 2. CLL. Chronic, discussed with Dr. Magaña, he reports he will see the patient from an oncologic perspective and discussed her diagnosis and ongoing management with her -whether patient is able to continue her oral chemotherapy agent is at the discretion of Dr. Magaña 3. Pancytopenia secondary to chemotherapy. Patient is currently severely neutropenic, she is not require blood transfusions at this time, will repeat CBC in a.m. And monitor for fever 4. Lower extremity edema. Most likely secondary to malnutrition and low albumin state, will evaluate the patient for protein calorie malnutrition with pre-albumin level in a.m., and as mentioned above, may repeat dosing of albumin to increase urine output depending on tomorrow serum chemistry levels Diet. Regular comma increase Ensure and smoothie intake Prophylaxis. High risk patient, Lovenox 40 Code. Full Disposition. Anticipated discharge uncertain, upgraded to inpatient admission status reasonable medical necessity including ongoing acute hypercalcemia in the setting of tumor lysis syndrome requiring ongoing IV fluids, IV diuretics, close serum chemistry monitoring. Subjective: Patient reports fatigue, poor memory Objective: Vital Signs Temp Pulse Resp BP Pulse Ox 36.8 C 100 19 106/59 L 89 L 12/10/17 16:19 12/10/17 16:19 12/10/17 16:19 12/10/17 16:19 12/10/17 16:19 Laboratory Results 12/10/17 04:28 12/10/17 16:10 12/09/17 12/10/17 12/11/17 05:59 05:59 05:59 Intake Total 2767 740 Output Total 1000 1200 Balance 1767 -460 - Physical Exam Constitutional: no apparent distress, appears nourished, not in pain, chronically ill appearing, cachectic Ears, Nose, Mouth, Throat: moist mucous membranes, hearing normal, ears appear normal, no oral mucosal ulcers Cardiovascular: regular rate and rhythym, no murmur, rub, or gallop, edema (1+ bilateral lower extremity edema), No irregularly irregular, No tachycardia Respiratory: no respiratory distress, no rales or rhonchi, clear to auscultation Gastrointestinal: normoactive bowel sounds, soft, non-tender abdomen, no palpable masses, No distension Musculoskeletal: other (Proximal muscle wasting) Neurologic: AAOx3, sensation intact bilaterally, No weakness (Motor strength 5/ 5 bilateral upper and lower extremities), No facial droop Psychiatric: not anxious, poor memory, other (Concentration /, some evidence of thought blocking), No agitated ICD10 Worksheet Patient Problems: Problems Problem Status Onset Immunodeficiency disorder Active Malignant lymphoma Active Constipation Acute
--- NOTE | 2017-12-10 17:47 | ASMTCMCOM ---
CM Note CM Note Notes: Pt admitted w/hypercalcemia, has hx of CLL. DC needs not clear yet, made inpt today. Pt has daughter who is involved. CM will follow. Date Signed: 12/10/2017 05:46 PM Electronically Signed By:Cyndee Cobb RN
--- NOTE | 2017-12-10 18:06 | PDMN ---
Medical Necessity Medical necessity: change to IP; los>2mn for ongoing acute hyperkalemia in setting of tumor lysis syndrome; requires IVF, IV diuretics, and close serum chemistry monitoring; comorbid CLL on oral chemo, pancytopenia r/t chemo, and LE edema r/t malnutrition and low albumin state; per order and progress note
[2017-12-10] MEDS: VENETOCLAX 400 MG PO SCH (18:10)
[2017-12-11] MEDS: NS W/ 20 KCl/L 1,000 ML IV SCH (03:57)
[2017-12-11 05:37] LABS: PLATELET COUNT 66 10^3/uL (150-400)
[2017-12-11] MEDS ORDERED: POTASSIUM CL 20 MEQ TAB PO ONE (09:06)
[2017-12-11] MEDS: ACYCLOVIR 400 MG TAB PO SCH (09:39)
[2017-12-11] MEDS: FUROSEMIDE 40 MG/4 ML VIAL IVP SCH ×2 (09:39→16:56)
[2017-12-11] MEDS: PANTOPRAZOLE SODIUM 40 MG TAB PO SCH (09:40)
[2017-12-11] MEDS: ALLOPURINOL 300 MG TAB PO SCH (09:40)
--- NOTE | 2017-12-11 10:57 | SOAPPROG ---
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 She does remain fatigued. We discussed the option of PRBC transfusion. Risks/Benefits reviewed. She would like to receive a transfusion prior to d/c today. Will give 1 unit PRBC's. She will continue on Venetoclax. Her hypercalcemia has resolved. She has a follow up visit with Dr. Arteaga tomorrow which she will keep. Her questions were answered. Case d/w Dr. Espitia. 12/11/17 10:53 Subjective: Feels better. Does report persistent fatigue. Objective: Vital Signs Temp Pulse Resp BP Pulse Ox 36.7 C 87 18 102/63 90 L 12/11/17 09:17 12/11/17 09:17 12/11/17 09:17 12/11/17 09:17 12/11/17 09:17 Laboratory Results 12/11/17 05:22 12/11/17 05:22 12/10/17 12/11/17 12/12/17 05:59 05:59 05:59 Intake Total 2767 4612 667 Output Total 1000 1950 200 Balance 1767 2662 467 - Time Spent With Patient Time Spent With Patient: 25 minutes Physical Exam - Physical Exam General Appearance: alert, no apparent distress EENT: PERRL/EOMI Skin: pallor Neuro/Psych: alert, normal mood/affect, oriented x 3 ICD10 Worksheet Patient Problems: Problems Problem Status Onset Immunodeficiency disorder Active Malignant lymphoma Active Constipation Acute
[2017-12-11] MEDS: VENETOCLAX 400 MG PO SCH (11:23)
[2017-12-11] MEDS: ENOXAPARIN 40 MG/0.4 ML SYR SC SCH (11:37)
--- NOTE | 2017-12-11 13:57 | PDDCSUM ---
Discharge Summary Discharge Summary: DISCHARGE SUMMARY FOLLOW-UP ITEMS: 1. Please repeat CBC and complete metabolic profile prior to appointment 2. Please arrange outpatient dietary consultation follow-up to help patient increase her protein intake 3. Recommend mini-mental status exam and cognitive evaluation primary care provider office DATE OF ADMISSION: 12/09/2017 DATE OF DISCHARGE: 12/11/2017 DISCHARGE DIAGNOSES: 1. Acute on chronic hypercalcemia 2. 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 Pancytopenia secondary to chemotherapy 4. Chronic lower extremity edema 5. Severe protein calorie malnutrition 6. Suspected mild cognitive impairment CONSULTATIONS: Dietary, Hematology-Oncology PROCEDURES / IMAGING: None CHIEF COMPLAINT: Acute lethargy SUBJECTIVE: Patient is feeling well at time of discharge she is ambulating safely independently PHYSICAL EXAM ON DISCHARGE: Systolic blood pressure is 1 100-110, heart rate 90-100, afebrile overnight, satting well on room air, alert awake oriented x3, chronically ill-appearing, cachectic with proximal muscle wasting, bilateral lower extremity 1+ edema LABS ON DISCHARGE: Corrected calcium level is 10.9, pre-albumin level is 10.9, hemoglobin 7.4, total white blood cell count 960, platelets [id number], creatinine 0.8, potassium 3.6 HOSPITAL COURSE BY PROBLEM: The patient presented with acute on chronic hypercalcemia secondary to malignancy and underlying CLL with recent transformation to pro lymphocytic leukemia. After further discussion with Dr. Demarco Magaña, we both agree the patient was not experiencing acute tumor lysis syndrome but was most likely experiencing acute worsening of her hypercalcemia secondary to malignancy unlikely PTHrP, with calcium levels yet to resolve after treatment for her underlying malignancy. Consequently, the patient required inpatient admission for IV fluids, IV diuretics. Given her severe malnutrition with pre-albumin level of 10.9, proximal muscle wasting, cachexia of malignancy, and distal lower extremity from low protein levels, the patient required couple doses of IV albumin to augment her calcium excretion through diuresis and increasing her oncotic pressure. These methods were successful, as the patient's calcium level fell from a corrected level of 12 to a corrected level of 10.9. She should receive subsequent calcium level monitoring the outpatient setting, but are anticipation would be that we will continue to normalize, given that the patient has recently received Zometa and her malignancy is reportedly under treatment. The patient will likely continue to experience distal edema secondary to her malnourished state, and we have highly recommended Ensure supplements with meals, and the patient has been provided with a dietary consultation prior to discharge. I recommend ongoing dietary consultation in the outpatient setting to help optimize her nutritional status, which will in turn lessen her edema, and improve her overall performance status. She did receive 1 unit packed red blood cells for hemoglobin level of 7.4 in the setting of pancytopenia secondary to recent chemotherapy, and since the patient was symptomatically lethargic prior to presentation, Dr. Magaña and I both agree that transfusion was indicated. She will have repeat CBC performed as an outpatient. I recommend that she use her home diuretics sparingly, given that the cause of her edema is most likely nutritional and the diuretic could potentiate hypotension. I also suspect that the patient has some element of poor memory/processing which may be potential evidence of mild cognitive impairment in the setting of malignancy, and she requires very structured guidance with her medications moving forward. The patient should either be placed on a scheduled low-dose diuretic moving forward or her diuretic should be completely held, only to be dosed at the discretion of her managing outpatient providers. That being said, in the interim, if patient chooses to use her home Lasix as needed, it will most likely not be dangerous if only taken sporadically, but I would recommend structured monitoring. DISCHARGE MEDICATIONS: Please see official discharge medication reconciliation sheet in chart , continue all home medications without any changes. Diuretic recommendations outlined above. DISCHARGE INSTRUCTIONS: Please follow up closely with Dr. Arteaga and her primary care provider. TIME SPENT: Greater than 30 minutes were spent on direct patient care, as well as discharge planning and preparation.
[2017-12-11 17:02] VITALS: BP 112/67
== END 2017-12-11 18:19 | disposition home or self-care (01) | DRG 640 ==
LOC: F1N 16:30 → OBSVTOIN 16:30
PROVIDERS: ADMIT Internal Medicine; ATTEND Internal Medicine
PROC: 30233N1 Transfusion of Nonautologous Red Blood Cells into Peripheral Vein, Percutaneous Approach (ICD-10-PCS; principal; 2017-12-09)
DX: E83.52 Hypercalcemia (principal); C91.30 Prolymphocytic leukemia of B-cell type not having achieved remission; E43 Unspecified severe protein-calorie malnutrition; D61.810 Antineoplastic chemotherapy induced pancytopenia; R60.0 Localized edema; G31.84 Mild cognitive impairment of uncertain or unknown etiology
CPT/HCPCS: 84134-90; 96374; 97161-GP; G0378; G0379; G8978-GP-CI; G8979-GP-CI; J1200; J1650; J1940; J2060; J2405; J2780; J2930; P9016; P9047

== ENCOUNTER → 2018-01-28 | Outpatient (CLI) | payer OTHER | LOC: FIMAGING 15:43 | PROVIDERS: ATTEND Internal Medicine Hematology & Oncology | DX: R05 Cough (principal); R91.8 Other nonspecific abnormal finding of lung field ==